=== PATIENT | female | born 1985 | race Two or more races ===

== ENCOUNTER 2019-02-22 09:54 | Outpatient (CLI) | payer OTHER | END 2019-02-22 10:01 | disposition home or self-care (01) | LOC: RX STUDY 09:54 | DX: N93.8 Other specified abnormal uterine and vaginal bleeding (principal); N91.2 Amenorrhea, unspecified; Q56.0 Hermaphroditism, not elsewhere classified ==

== ENCOUNTER → 2019-03-27 | Outpatient (CLI) | payer OTHER | END | disposition home or self-care (01) | LOC: MAMO-SONO 09:30 → SONOGRAMA 09:38 | DX: N93.8 Other specified abnormal uterine and vaginal bleeding (principal); D25.0 Submucous leiomyoma of uterus ==